=== PATIENT | female | born 1970 | race Hispanic/Latino ===

== ENCOUNTER 2017-11-27 17:36 | Emergency (ER) | payer OTHER ==
[~2017-11-27 17:36] MED LIST: ALPRAZOLAM0.5 M4 PO; AMOXICILLIN875 M1 PO; AUGMENTIN 875-1 EACH PO; CITALOPRAM HYDR20 MG PO; IBUPROFEN800 M1 PO; LORATADINE10 M1 PO; MECLIZINE HCL25 MG PO; MEDROL4 M2 PO; MOBIC15 M1 PO; NASONEX17 GM NASB; PANTOPRAZOLE SO40 M1 PO; PRILOSEC OTC20 M1 PO; QUETIAPINE FUMA50 M1 PO; RANITIDINE HYD150 MG PO; SERTRALINE HCL50 MG PO; TESSALON PERLE100 M1 PO; TRAMADOL HCL50 M1 PO
--- NOTE | 2017-11-27 20:34 | ED INFLUENZA/URI COMPLAINT ---
History of Present Illness General Chief Complaint: General Adult Stated Complaint: "I HAVE THE FLU" Source: patient Exam Limitations: no limitations Allergies Coded Allergies: NO KNOWN ALLERGIES (10/04/11) Reconcile Medications Alprazolam 0.5 MG TABLET 1 TAB PO BIDP PRN anxiety/stress Benzonatate (Tessalon Perle) 100 MG CAPSULE 1 CAP PO TID PRN cough Ibuprofen 800 MG TABLET 1 TAB PO TID PAIN/INFLAMMATION (Reported) Loratadine 10 MG TABLET 1 TAB PO DAILY ALLERGIES (Reported) Mometasone Furoate (Nasonex) 50 MCG SPRAY.PUMP 2 SPRAY NASB DAILY PRN congestion Oseltamivir Phosphate (Tamiflu) 75 MG CAPSULE 1 CAP PO BID INFLUENZA Pantoprazole Sodium 40 MG TABLET.DR 1 TAB PO DAILY GI (Reported) Quetiapine Fumarate 50 MG TABLET 1 TAB PO QPM MENTAL HEALTH (Reported) Sertraline HCl 50 MG TABLET 1 TAB PO DAILY MENTAL HEALTH (Reported) Triage Note: PER PT COLD AND CONGESTION, SINCE SUNDAY SEEN IN ED, GIVEN NOTE FOR WORK BUT TOLD TO RETURN TODAY BUT STILL DON'T FEEL ANY BETTER. Triage Nurses Notes Reviewed? yes HPI: Patient is a 47-year-old female with a PMH of GERD and depression who presented to the ED 2 days ago complaining of flulike symptoms with a rapid flu test being negative at that time, who returns today complaining of persistence of the symptoms. She states that since Sunday she has had subjective fever, chills, nausea, diarrhea, back pain, body aches, productive cough with yellow sputum, chest pain associated with the cough. She has one sick contact at work who has similar symptoms. She denies any episodes of vomiting, lightheadedness, persistent chest pain or discomfort. (Alida CRUMP,Corey) Vital Signs & Intake/Output Vital Signs & Intake/Output Vital Signs Date Time Temp Pulse Resp B/P B/P Pulse O2 O2 Flow FiO2 Mean Ox Delivery Rate 11/275 98.0 82 20 127/65 98 Room Air 11/27 2017 97 Room Air 11/27 1812 98.8 90 20 119/73 97 (Lyssa CRUMP,Clive Lane) Past History Travel History Traveled to [place] past 21 day No Medical History Any Pertinent Medical History? see below for history Neurological: NONE EENT: NONE Cardiovascular: NONE Respiratory: NONE Gastrointestinal: GERD Hepatic: NONE Renal: NONE Musculoskeletal: NONE Psychiatric: depression Endocrine: NONE Blood Disorders: NONE Cancer(s): NONE Surgical History Surgical History: Psychosocial History What is your primary language Greek Tobacco Use: Never used ETOH Use: denies use Illicit Drug Use: denies illicit drug use Family History Hx Contributory? No (Corey Irwin MD) Review of Systems Review of Systems Constitutional: Reports: chills, fever, malaise, weakness. Denies: diaphoresis. EENTM: Reports: nasal congestion. Denies: blurred vision, double vision, visual changes. Respiratory: Reports: cough, sputum production. Denies: hemoptysis, short of breath. Cardiovascular: Reports: chest pain (pleuritic). Denies: palpitations, syncope. GI: Reports: diarrhea, nausea. Denies: abdominal pain, melena, bloody stool, vomiting. Genitourinary: Reports: no symptoms. Musculoskeletal: Reports: back pain. Skin: Reports: no symptoms. (Corey Irwin MD) Physical Exam Physical Exam General Appearance: well developed/nourished, alert, awake, mild distress Head: atraumatic Eyes: Bilateral: normal appearance, PERRL, EOMI, pale conjunctivae. Ears, Nose, Throat: moist mucous membrane, hearing grossly normal, nasal congestion Neck: normal inspection, supple, full range of motion Respiratory: normal breath sounds, chest non-tender, no respiratory distress, lungs clear Cardiovascular: regular rate/rhythm Peripheral Pulses: 2+ radial (R), 2+ radial (L) Gastrointestinal: normal bowel sounds, soft, non-tender Core Measures Sepsis Present: No Sepsis Focused Exam Completed? No (Corey Irwin MD) Progress Differential Diagnosis: influenza, viral URI Initial ED EKG: none (Corey Irwin MD) Plan of Care: Orders Procedure Date/time Status CBC WITHOUT DIFFERENTIAL 11/27 2042 Complete BASIC METABOLIC PANEL 11/27 2042 Complete RAPID VIRAL INFLUENZA A 11/27 1756 Complete Laboratory Tests 11/27/17 2100: Anion Gap 11, Estimated GFR > 60, BUN/Creatinine Ratio 8.6, Glucose 106 H, Calcium 9.0, CBC w Diff NO MAN DIFF REQ, RBC 4.54, MCV 91.0, MCH 30.3, RDW 13.9, MPV 9.3, Gran % 70.8, Lymphocytes % 21.7, Monocytes % 7.0, Eosinophils % 0.1, Basophils % 0.4, Absolute Granulocytes 4.5, Absolute Lymphocytes 1.4, Absolute Monocytes 0.4, Absolute Eosinophils 0, Absolute Basophils 0, PUBS MCHC 33.3 Microbiology 11/27 2014 NASOPHARYN: Influenza Virus A & B Rapid Smear - COMP INFLUENZA TYPE B Given positive rapid influenza type B will currently treat symptomatically with IV fluids. Patient explains the lack of evidence for significant benefit of antiviral treatment at this point in her ilness, however is requesting [facility] for with a prescription for 5 day course of Tamiflu 75 mg twice a day. (Corey Irwin MD) (Clive Omalley MD) Departure Departure Disposition: HOME OR SELF CARE Condition: Stable Clinical Impression Primary Impression: Influenza B Referrals: Allyson Arellano APRN (PCP/Family) Additional Instructions: Please follow-up with your primary care physician within 24-48 hours and inform them of this ER visit and your diagnosis of influenza B. Take Tamiflu as directed. Stay hydrated by drinking plenty of fluids and consuming a regular diet as tolerated. He should experience any chest pain, shortness of breath, loss of consciousness, or worsening of your current symptoms please call your doctor or return to the ER. Departure Forms: Customer Survey General Discharge Information Prescriptions: Current Visit Scripts Oseltamivir Phosphate (Tamiflu) 1 CAP PO BID #10 CAP (Corey Irwin MD) Resident Co-Sign Statement Statement: ED Attending supervision documentation- [x] I saw and evaluated the patient. I have also reviewed all the pertinent lab results and diagnostic results. I agree with the findings and the plan of care as documented in the Resident's documentation. Patient presents for evaluation of flulike symptoms after testing negative for the flu 2 days ago in the emergency department. Physical examination reveals a somewhat tired appearing patient but is otherwise unremarkable. [] I have reviewed the ED Record and agree with the Resident's documentation. [] Additions or exceptions (if any) to the Resident's note and plan are summarized below: [] (Lyssa CRUMP,Clive Lane) (Clive Omalley MD)
[2017-11-27 21:17] LABS: ABSOLUTE BASOPHIL COUNT 0 /CUMM (0.0-0.2); ABSOLUTE EOSINOPHIL COUNT 0 /CUMM (0.0-0.7); ABSOLUTE GRANULOCYTE CT 4.5 /CUMM (1.4-6.5); ABSOLUTE LYMPH COUNT 1.4 /CUMM (1.2-3.4); ABSOLUTE MONOCYTE COUNT 0.4 /CUMM (0.10-0.60); BASOPHIL % 0.4 % (0.0-2.0); EOSINOPHIL % 0.1 % (0-5); GRANULOCYTE % 70.8 % (42.2-75.2); HEMATOCRIT 41.3 % (37-47); MEAN CORPUSCULAR HGB 30.3 PG (27.0-31.0); MEAN CORPUSCULAR HGB CONC 33.3 G/DL (33.0-37.0); MEAN PLATELET VOLUME 9.3 FL (7.4-10.4); PLATELET COUNT 165 /CUMM (130-400); RBC DISTRIBUTION WIDTH 13.9 % (11.5-14.5); RED BLOOD CELL CT 4.54 /CUMM (4.20-5.40); WHITE BLOOD CELL COUNT 6.4 /CUMM (4.8-10.8)
[2017-11-27] MEDS ORDERED: TAMIFLU75 M1 PO (22:04)
[2017-11-27 22:25] VITALS: BP 127/65
== END 2017-11-27 22:26 ==
LOC: ERH 17:36
PROVIDERS: Dermatology
DX: J10.1 Influenza due to other identified influenza virus with other respiratory manifestations (principal)
CPT/HCPCS: 87804; 87804-59; 96360